=== PATIENT | female | born 1990 ===

== ENCOUNTER 2019-12-10 21:40 | Emergency (ER) | payer OTHER ==
--- NOTE | 2019-12-10 22:06 | EDM.PDOC ---
ED HPI GENERAL MEDICAL PROBLEM - General Chief Complaint: Abdominal Pain Stated Complaint: ABDOMINAL PAIN Time Seen by Provider: 12/10/19 22:05 Source of Information: Reports: Patient History Limitations: Reports: No Limitations - History of Present Illness INITIAL COMMENTS - FREE TEXT/NARRATIVE: Patient 29-year-old female presents today for vaginal bleeding. Patient states that while she is at work started having bleeding and passing what she thought was clots and tissue. Patient also planes of some lower abdominal cramps. Patient denies any nausea vomiting diarrhea fever chills. Patient is currently on control but does not use protection when having sex. abdomen Pain Score (Numeric/FACES): 9 - Related Data Allergies Allergy/AdvReac Type Severity Reaction Status Date / Time acetaminophen Allergy Rash Verified 12/10/19 22:00 [From Tylenol-Codeine #3] codeine Allergy Rash Verified 12/10/19 22:00 [From Tylenol-Codeine #3] oxycodone Allergy Rash Verified 12/10/19 22:00 Home Meds: Home Meds Antibiotic Uti 12/10/19 [History] Control 12/10/19 [History] Doxycycline [Vibra-Tabs] 100 mg PO Q12HR 14 Days #28 tab 12/10/19 [Rx] Saliva Substitute Combo No.9 [Biotene] 0 ml MM 12/10/19 [History] metroNIDAZOLE [Flagyl] 500 mg PO Q12H 14 Days #28 tab 12/10/19 [Rx] ED ROS GENERAL - Review of Systems Review Of Systems: Comprehensive ROS is negative, except as noted in HPI. Constitutional: Reports: No Symptoms HEENT: Reports: No Symptoms Respiratory: Reports: No Symptoms Cardiovascular: Reports: No Symptoms Endocrine: Reports: No Symptoms GI/Abdominal: Reports: No Symptoms : Reports: Irregular Menses Musculoskeletal: Reports: No Symptoms Skin: Reports: No Symptoms Neurological: Reports: No Symptoms Psychiatric: Reports: No Symptoms Hematologic/Lymphatic: Reports: No Symptoms Immunologic: Reports: No Symptoms ED EXAM, GENERAL - Physical Exam Exam: See Below Exam Limited By: No Limitations General Appearance: Alert, No Apparent Distress Respiratory/Chest: No Respiratory Distress Cardiovascular: Normal Peripheral Pulses GI/Abdominal: Normal Bowel Sounds (Female) Exam: Normal External Exam, Cervix Motion Tenderness Neurological: Alert, Oriented, CN II-XII Intact Course - Vital Signs Last Recorded V/S: Last Vital Signs Temp 98.1 F 12/10/19 22:01 Pulse 74 12/10/19 22:51 Resp 18 12/10/19 22:51 BP 95/59 L 12/10/19 22:51 Pulse Ox 99 12/10/19 22:51 - Orders/Labs/Meds Labs: Laboratory Tests 12/10/19 12/10/19 12/10/19 Range/Units 22:19 22:19 22:19 WBC 8.22 (4.0-11.0) K/uL RBC 5.34 (4.30-5.90) M/uL Hgb 12.1 (12.0-16.0) g/dL Hct 38.8 (36.0-46.0) % MCV 72.7 L (80.0-98.0) fL MCH 22.7 L (27.0-32.0) pg MCHC 31.2 (31.0-37.0) g/dL RDW Std Deviation 39.7 (28.0-62.0) fl RDW Coeff of Williams 15 (11.0-15.0) % Plt Count 348 (150-400) K/uL MPV 8.90 (7.40-12.00) fL Neut % (Auto) 57.0 (48.0-80.0) % Lymph % (Auto) 35.3 (16.0-40.0) % [place] % (Auto) 5.8 (0.0-15.0) % Eos % (Auto) 1.7 (0.0-7.0) % Baso % (Auto) 0.2 (0.0-1.5) % Neut # (Auto) 4.7 (1.4-5.7) K/uL Lymph # (Auto) 2.9 H (0.6-2.4) K/uL [place] # (Auto) 0.5 (0.0-0.8) K/uL Eos # (Auto) 0.1 (0.0-0.7) K/uL Baso # (Auto) 0.0 (0.0-0.1) K/uL Nucleated RBC % 0.0 /100WBC Nucleated RBCs # 0 K/uL Sodium 140 (136-145) mmol/L Potassium 3.8 (3.5-5.1) mmol/L Chloride 105 (98-107) mmol/L Carbon Dioxide 27.3 (21.0-32.0) mmol/L BUN 11 (7.0-18.0) mg/dL Creatinine 0.8 (0.6-1.0) mg/dL Est Cr Clr Drug Dosing TNP Estimated GFR (MDRD) > 60.0 ml/min Glucose 91 (74-106) mg/dL Calcium 8.5 (8.5-10.1) mg/dL HCG, Quant 2.0 mIU/mL Blood Type O POSITIVE Meds: Medications Discontinued Medications Generic Name Dose Route Start Last Admin Trade Name Freq PRN Reason Stop Dose Admin Doxycycline Hyclate 100 mg 12/10/19 23:29 12/10/19 23:46 Vibramycin PO 12/10/19 23:30 100 mg ONETIME ONE Administration Ceftriaxone Sodium 250 mg/ 1 mls @ 1 mls/sec 12/10/19 23:29 12/10/19 23:46 Lidocaine HCl IM 12/10/19 23:30 1 mls/sec ONETIME ONE Administration Ibuprofen 600 mg 12/10/19 23:32 12/10/19 23:46 Motrin PO 12/10/19 23:33 600 mg ONETIME ONE Administration Metronidazole 500 mg 12/10/19 23:29 12/10/19 23:46 Metronidazole PO 12/10/19 23:30 500 mg ONETIME ONE Administration Departure - Departure Time of Disposition: 23:48 Disposition: Home, Self-Care 01 Clinical Impression: PID (pelvic inflammatory disease) - Discharge Information *PRESCRIPTION DRUG MONITORING PROGRAM REVIEWED*: Not Applicable *COPY OF PRESCRIPTION DRUG MONITORING REPORT IN PATIENT GABRIELE: Not Applicable Instructions: Pelvic Pain, Female, [id number] Referrals: PCP,Not In Area [Primary Care Provider] - Forms: ED Department Discharge Additional Instructions: The following information is given to patients seen in the emergency department who are being discharged to home. This information is to outline your options for follow-up care. We provide all patients seen in our emergency department with a follow-up referral. The need for follow-up, as well as the timing and circumstances, are variable depending upon the specifics of your emergency department visit. If you don't have a primary care physician on staff, we will provide you with a referral. We always advise you to contact your personal physician following an emergency department visit to inform them of the circumstance of the visit and for follow-up with them and/or the need for any referrals to a consulting specialist. The emergency department will also refer you to a specialist when appropriate. This referral assures that you have the opportunity for follow-up care with a specialist. All of these measure are taken in an effort to provide you with optimal care, which includes your follow-up. Under all circumstances we always encourage you to contact your private physician who remains a resource for coordinating your care. When calling for follow-up care, please make the office aware that this follow-up is from your recent emergency room visit. If for any reason you are refused follow-up, please contact the [facility] Emergency Department at and asked to speak to the emergency department charge nurse. Please take antibiotics as prescribed. We will contact you in the next 2 to 3 days with your test results. Test results are negative you do not need eating antibiotics if they are positive please continue antibiotics and also have your partner be treated and tested as well. If you develop any fevers chills increased pain please return to the emergency department please. Sepsis Event Note (ED) - Evaluation Sepsis Screening Result: No Definite Risk - Focused Exam Vital Signs: Vital Signs Temp Pulse Resp BP Pulse Ox 12/10/19 22:51 74 18 95/59 L 99 12/10/19 22:01 98.1 F 70 20 118/83 98 - Assessment/Plan Plan: Patient is a 29-year-old female who presents today for vaginal bleeding and feels she is passing clots. Will obtain labs and test. Patient on exam has some CMT tenderness and associated with her protection. Will test patient for GC chlamydia and treat empirically.
[2019-12-10 22:54] LABS: BLOOD UREA NITROGEN,BUN 11 mg/dL (7.0-18.0); CARBON DIOXIDE,CO2 27.3 mmol/L (21.0-32.0); CHLORIDE,CL 105 mmol/L (98-107); GLUCOSE RANDOM 91 mg/dL (74-106); POTASSIUM,K 3.8 mmol/L (3.5-5.1); SODIUM,NA 140 mmol/L (136-145)
[2019-12-10] MEDS ORDERED: cefTRIAXone 250 MG in Lidocaine 1% 1 ML IM ONE (23:29)
[2019-12-10] MEDS ORDERED: Doxycycline 100 MG Cap PO ONE (23:29)
[2019-12-10] MEDS ORDERED: metroNIDAZOLE 250 MG Tab PO ONE (23:29)
[2019-12-10] MEDS ORDERED: Ibuprofen 600 MG Tab PO ONE (23:32)
[2019-12-14 15:02] LABS: C.TRACHOMATIS BY TMA Negative (Negative); N.GONORRHOEAE BY TMA Negative (Negative)
== END 2019-12-11 00:14 | disposition home or self-care (01) ==
LOC: MW.ED 21:40
DX: N73.9 Female pelvic inflammatory disease, unspecified (principal); Z88.6 Allergy status to analgesic agent; Z88.5 Allergy status to narcotic agent; Z79.899 Other long term (current) drug therapy
CPT/HCPCS: 36415; 80048; 84702; 85025; 86900; 86901; 87491; 87591; 96372; 99284; A9270; J0696; J2001; 99282

== ENCOUNTER 2019-12-15 18:19 | Emergency (ER) | payer OTHER ==
--- NOTE | 2019-12-15 19:01 | EDM.PDOC ---
ED HPI GENERAL MEDICAL PROBLEM - General Chief Complaint: General Stated Complaint: covid-19 Time Seen by Provider: 12/15/19 18:37 Source of Information: Reports: Patient History Limitations: Reports: No Limitations - History of Present Illness INITIAL COMMENTS - FREE TEXT/NARRATIVE: Presents reporting Covid symptoms. For the last 2 days she has had a cough, fever, body aches and congestion. No sore throat, diarrhea, breathing problems. Otherwise healthy without chronic medical problems. She states that she has a history of asthma but takes no medications and only rare flares. She does not smoke. 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, Polycystic Ovaries Musculoskeletal History: Reports: None Neurological History: Reports: None Psychiatric History: Reports: None Endocrine/Metabolic History: Reports: None Hematologic History: Reports: None Oncologic (Cancer) History: Reports: None Dermatologic History: Reports: None - Infectious Disease History Infectious Disease History: Reports: None Social & Family History - Family History Family Medical History: Noncontributory - Caffeine Use Caffeine Use: Reports: None - Recreational Drug Use Recreational Drug Use: No ED ROS GENERAL - Review of Systems Review Of Systems: Comprehensive ROS is negative, except as noted in HPI. ED EXAM, GENERAL - Physical Exam Exam: See Below Exam Limited By: No Limitations General Appearance: Alert, No Apparent Distress Ears: Normal External Exam, Normal TMs Nose: Normal Inspection Throat/Mouth: Normal Inspection, Normal Oropharynx Head: Atraumatic, Normocephalic Neck: Normal Inspection Respiratory/Chest: No Respiratory Distress Cardiovascular: Normal Peripheral Pulses, Regular Rate, Rhythm, No Murmur Back Exam: Normal Inspection Extremities: Normal Inspection Neurological: Alert, Oriented, Normal Cognition Psychiatric: Normal Affect, Normal Mood Skin Exam: Warm, Dry, Intact, Normal Color, No Rash Lymphatic: No Adenopathy Course - Vital Signs Last Recorded V/S: Last Vital Signs Temp 37.9 C 12/15/19 18:29 Pulse 96 12/15/19 18:29 Resp 18 12/15/19 18:29 BP 102/66 12/15/19 18:29 Pulse Ox 96 12/15/19 18:29 - Orders/Labs/Meds Orders: Active Orders 24 hr Category Date Time Status CORONAVIRUS COVID-19 PCR PH[facility] Stat Lab 12/15/19 18:52 Ordered Labs: Laboratory Tests 12/15/19 Range/Units 19:00 SARS CoV-2 RNA Rapid GARIMA POSITIVE H (NEGATIVE) Departure - Departure Time of Disposition: 19:21 Disposition: Home, Self-Care 01 Condition: Good Clinical Impression: COVID-19 - Discharge Information Referrals: PCP,Not In Area [Primary Care Provider] - [facility] [Outside] [facility] [Outside] Forms: ED Department Discharge Additional Instructions: The following information is given to patients seen in the emergency department who are being discharged to home. This information is to outline your options for follow-up care. We provide all patients seen in our emergency department with a follow-up referral. The need for follow-up, as well as the timing and circumstances, are variable depending upon the specifics of your emergency department visit. If you don't have a primary care physician on staff, we will provide you with a referral. We always advise you to contact your personal physician following an emergency department visit to inform them of the circumstance of the visit and for follow-up with them and/or the need for any referrals to a consulting specialist. The emergency department will also refer you to a specialist when appropriate. This referral assures that you have the opportunity for follow-up care with a specialist. All of these measure are taken in an effort to provide you with optimal care, which includes your follow-up. Under all circumstances we always encourage you to contact your private physician who remains a resource for coordinating your care. When calling for follow-up care, please make the office aware that this follow-up is from your recent emergency room visit. If for any reason you are refused follow-up, please contact the [facility] Emergency Department at and asked to speak to the emergency department charge nurse 1. Drink plenty of fluids and rest 2. Tylenol or ibuprofen as needed for body aches and fever 3. Quarantine at home per guidelines Sepsis Event Note (ED) - Evaluation Sepsis Screening Result: No Definite Risk - Focused Exam Vital Signs: Vital Signs Temp Pulse Resp BP Pulse Ox 12/15/19 18:29 37.9 C 96 18 102/66 96 - My Orders Last 24 Hours: My Active Orders 12/15/19 18:52 CORONAVIRUS COVID-19 PCR [facility] Stat - Assessment/Plan Last 24 Hours: My Active Orders 12/15/19 18:52 CORONAVIRUS COVID-19 PCR [facility] Stat
== END 2019-12-15 19:38 | disposition home or self-care (01) ==
LOC: MW.ED 18:19
DX: U07.1 COVID-19 (principal); J45.909 Unspecified asthma, uncomplicated; Z88.6 Allergy status to analgesic agent; Z88.5 Allergy status to narcotic agent
CPT/HCPCS: 99282; 99283; U0002

== ENCOUNTER 2020-02-12 04:08 | Emergency (ER) | payer MEDICAID, OTHER ==
[2020-02-12] MEDS ORDERED: Sodium Chloride 0.9% 2.5 ML Syringe FLUSH PRN (04:13)
[2020-02-12] MEDS ORDERED: Sodium Chloride 0.9% 1,000 ML IV ONE (04:13)
[2020-02-12] MEDS ORDERED: Sodium Chloride 0.9% 10 ML Syringe FLUSH PRN (04:13)
[2020-02-12] MEDS ORDERED: Ondansetron 4 MG/2 ML SDV IVPUSH ONE (04:26)
--- NOTE | 2020-02-12 04:38 | EDM.PDOC ---
ED HPI GENERAL MEDICAL PROBLEM - General Chief Complaint: Drug or Alcohol Abuse Stated Complaint: PT. UNRESPONSIVE Time Seen by Provider: 02/12/20 04:14 - History of Present Illness INITIAL COMMENTS - FREE TEXT/NARRATIVE: HISTORY AND PHYSICAL: History of present illness: This is a 29-year-old female who is brought in by her today secondary to being unresponsive after drinking a significant amount of alcohol this evening. Upon arrival to the ED the patient responded to sternal rub and was able to converse with us appropriately. Patient reports a history of hypertension, denies diabetes, liver, lung, kidney problems. Patient denies any abdominal or chest surgeries in the past. Patient reports alcohol tonight denies any drugs or tobacco. Patient denies any head trauma or injuries. Patient has any recent fevers, shakes, chills, nausea, vomiting, diarrhea, dysuria, frequency, urgency, chest pain, shortness of breath, bowel discomfort. Review of systems: As per history of present illness and below otherwise all systems reviewed and negative. Past medical history: As per history of present illness and as reviewed below otherwise noncontributory. Surgical history: As per history of present illness and as reviewed below otherwise noncontributory. Social history: No reported history of drug or alcohol abuse. Family history: As per history of present illness and as reviewed below otherwise non contributory. Physical exam: Constitutional: Patient is oriented to person, place, and time. Appears well- developed and well-nourished. No distress. HEENT: Moist mucous membranes Head: Normocephalic and atraumatic Eyes: Right eye exhibits no discharge. Left eye exhibits no discharge. No scleral icterus Neck: Normal range of motion. No tracheal deviation present. Cardiovascular: Normal rate and regular rhythm. Pulmonary: Effort normal, no respiratory distress. Abdominal: No distention Musculoskeletal: Normal range of motion Neurologic: Alert and oriented to person, place and time. Skin: [place], warm and dry. Psychiatric: Normal mood and affect. Behavior is normal. Judgment and thought content normal. Nursing note and vital signs have been reviewed Patient has no C-spine T-spine or L-spine tenderness to palpation. Patient has no left upper or right upper quadrant tenderness to palpation. Patient has no crepitus to palpation to the anterior chest wall. Patient is neurologically intact. Patient does not present with any signs or or symptoms that would be consistent with acute intracranial, intra-abdominal, intrathoracic, or long bone injury. All long bones have been palpated and range of motion been performed and there is no evidence of any acute pathology. Neck supple, no nuchal rigidity, no photophobia, no Kernig's sign or Brudzinski sign, patient does not present with signs or symptoms of be consistent with meningitis. Abd: Soft, nondistended, no rebound/guarding, no psoas or obturator signs, no tenderness at Mcberney's point, no Veras's sign. Pt does not present with an exam that would be consistent with an acute surgical abdomen at this time This patient was seen and evaluated during the 2019 SARS-CoV-2 novel coronavirus pandemic period. Community viral transmission is ongoing at time of this encounter and the emergency department is operating under pandemic response procedures. Assessment and plan: This is a 29-year-old female who presents ER today secondary to being unresponsive this evening after drinking significant alcohol. Patient denies any drug use. Patient be monitored in the ER. Patient will have labs checked including a CBC, CMP and a alcohol level. Patient be given IV fluids and Zofran to assist her with her symptoms and hydration while she is here. Patient does not present with any signs or symptoms of be concerning for acute head trauma, stroke, bleed. Definitive disposition and diagnosis as appropriate pending reevaluation and review of above. - Related Data Allergies Allergy/AdvReac Type Severity Reaction Status Date / Time acetaminophen Allergy Rash Verified 02/12/20 04:36 [From Tylenol-Codeine #3] codeine Allergy Rash Verified 02/12/20 04:36 [From Tylenol-Codeine #3] oxycodone Allergy Rash Verified 02/12/20 04:36 Home Meds: Home Meds Control 12/10/19 [History] Saliva Substitute Combo No.9 [Biotene] 0 ml MM 12/10/19 [History] Ondansetron [Zofran ODT] 4 mg PO Q6H PRN #12 tab.dis 02/12/20 [Rx] Past Medical History HEENT History: Reports: None Cardiovascular History: Reports: None Respiratory History: Reports: Asthma Gastrointestinal History: Reports: None 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: Endometriosis, Polycystic Ovaries Musculoskeletal History: Reports: None Neurological History: Reports: None Psychiatric History: Reports: None Endocrine/Metabolic History: Reports: None Hematologic History: Reports: None Oncologic (Cancer) History: Reports: None Dermatologic History: Reports: None - Infectious Disease History Infectious Disease History: Reports: None Social & Family History - Family History Family Medical History: No Pertinent Family History - Caffeine Use Caffeine Use: Reports: None ED ROS GENERAL - Review of Systems Review Of Systems: See Below ED EXAM, GENERAL - Physical Exam Exam: See Below Course - Vital Signs Last Recorded V/S: Last Vital Signs Temp 96.8 F L 02/12/20 04:08 Pulse 81 02/12/20 05:47 Resp 14 02/12/20 05:47 BP 107/68 02/12/20 05:47 Pulse Ox 96 02/12/20 05:47 - Orders/Labs/Meds Orders: Active Orders 24 hr Category Date Time Status Sodium Chloride 0.9% [Saline Flush] Med 02/12/20 04:13 Active 10 ml FLUSH ASDIRECTED PRN Sodium Chloride 0.9% [Saline Flush] Med 02/12/20 04:13 Active 2.5 ml FLUSH ASDIRECTED PRN Saline Lock Insert [OM.PC] Stat Oth 02/12/20 04:13 Ordered Medication Orders Sodium Chloride (Saline Flush) 10 ml FLUSH ASDIRECTED PRN PRN Reason: Keep Vein Open Last Admin: 02/12/20 04:19 Dose: 10 ml Documented by: TANO Sodium Chloride (Saline Flush) 2.5 ml FLUSH ASDIRECTED PRN PRN Reason: Keep Vein Open Last Admin: 02/12/20 04:18 Dose: 2.5 ml Documented by: TANO Labs: Laboratory Tests 02/12/20 02/12/20 Range/Units 04:15 04:15 WBC 11.15 H (4.0-11.0) K/uL RBC 5.50 (4.30-5.90) M/uL Hgb 12.4 (12.0-16.0) g/dL Hct 39.7 (36.0-46.0) % MCV 72.2 L (80.0-98.0) fL MCH 22.5 L (27.0-32.0) pg MCHC 31.2 (31.0-37.0) g/dL RDW Std Deviation 38.9 (28.0-62.0) fl RDW Coeff of Williams 15 (11.0-15.0) % Plt Count 311 (150-400) K/uL MPV 8.90 (7.40-12.00) fL Neut % (Auto) 39.2 L (48.0-80.0) % Lymph % (Auto) 52.6 H (16.0-40.0) % [place] % (Auto) 5.6 (0.0-15.0) % Eos % (Auto) 2.2 (0.0-7.0) % Baso % (Auto) 0.4 (0.0-1.5) % Neut # (Auto) 4.4 (1.4-5.7) K/uL Lymph # (Auto) 5.9 H (0.6-2.4) K/uL [place] # (Auto) 0.6 (0.0-0.8) K/uL Eos # (Auto) 0.3 (0.0-0.7) K/uL Baso # (Auto) 0.1 (0.0-0.1) K/uL Nucleated RBC % 0.0 /100WBC Nucleated RBCs # 0 K/uL Sodium 142 (136-145) mmol/L Potassium 3.7 (3.5-5.1) mmol/L Chloride 105 (98-107) mmol/L Carbon Dioxide 23.1 (21.0-32.0) mmol/L BUN 9 (7.0-18.0) mg/dL Creatinine 0.9 (0.6-1.0) mg/dL Est Cr Clr Drug Dosing TNP Estimated GFR (MDRD) > 60.0 ml/min Glucose 106 (74-106) mg/dL Calcium 9.3 (8.5-10.1) mg/dL Total Bilirubin 0.5 (0.2-1.0) mg/dL AST 30 (15-37) IU/L ALT 50 (14-63) IU/L Alkaline Phosphatase 62 (46-116) U/L Total Protein 7.8 (6.4-8.2) g/dL Albumin 3.9 (3.4-5.0) g/dL Globulin 3.9 (2.6-4.0) g/dL Albumin/Globulin Ratio 1.0 (0.9-1.6) Ethyl Alcohol 167 mg/dL Meds: Medications Generic Name Dose Route Start Last Admin Trade Name Freq PRN Reason Stop Dose Admin Sodium Chloride 10 ml 02/12/20 04:13 02/12/20 04:19 Saline Flush FLUSH 10 ml ASDIRECTED PRN Administration Keep Vein Open Sodium Chloride 2.5 ml 02/12/20 04:13 02/12/20 04:18 Saline Flush FLUSH 2.5 ml ASDIRECTED PRN Administration Keep Vein Open Discontinued Medications Generic Name Dose Route Start Last Admin Trade Name Freq PRN Reason Stop Dose Admin Sodium Chloride 1,000 mls @ 999 mls/hr 02/12/20 04:13 02/12/20 04:19 Normal Saline IV 02/12/20 05:13 999 mls/hr .Bolus ONE Administration Ondansetron HCl 4 mg 02/12/20 04:26 02/12/20 04:40 Zofran IVPUSH 02/12/20 04:27 4 mg ONETIME ONE Administration Departure - Departure Time of Disposition: 06:08 Disposition: Home, Self-Care 01 Condition: Good Clinical Impression: Unresponsive episode Alcohol intoxication Qualifiers: Complication of substance-induced condition: uncomplicated Qualified Code(s): F10.920 - Alcohol use, unspecified with intoxication, uncomplicated - Discharge Information Instructions: Binge-Drinking Information, Adult, Alcohol Intoxication, Easy-to- Read Referrals: PCP,None [Primary Care Provider] - Forms: ED Department Discharge Additional Instructions: You were seen and evaluated in the ER today secondary to an episode of unresponsiveness. Your alcohol level here in the ER today is 0.167. For reference, the legal limit for driving is under 0.08. This means you are a little over twice the legal limit for driving. In the ED you have been given medicine to help you with nausea as well as IV fluids. Please avoid excessive alcohol use in the future. The following information is given to patients seen in the emergency department who are being discharged to home. This information is to outline your options for follow-up care. We provide all patients seen in our emergency department with a follow-up referral. The need for follow-up, as well as the timing and circumstances, are variable depending upon the specifics of your emergency department visit. If you don't have a primary care physician on staff, we will provide you with a referral. We always advise you to contact your personal physician following an emergency department visit to inform them of the circumstance of the visit and for follow-up with them and/or the need for any referrals to a consulting specialist. The emergency department will also refer you to a specialist when appropriate. This referral assures that you have the opportunity for follow-up care with a specialist. All of these measure are taken in an effort to provide you with optimal care, which includes your follow-up. Under all circumstances we always encourage you to contact your private physician who remains a resource for coordinating your care. When calling for follow-up care, please make the office aware that this follow-up is from your recent emergency room visit. If for any reason you are refused follow-up, please contact the [facility] Emergency Department at and asked to speak to the emergency department charge nurse. [facility] [address] [place] [id number] [address] Sepsis Event Note (ED) - Focused Exam Vital Signs: Vital Signs Temp Pulse Resp BP Pulse Ox 02/12/20 05:47 81 14 107/68 96 02/12/20 04:08 96.8 F L 114 H 6 L 119/66 97 - My Orders Last 24 Hours: My Active Orders 02/12/20 04:13 Sodium Chloride 0.9% [Saline Flush] 10 ml FLUSH ASDIRECTED PRN Sodium Chloride 0.9% [Saline Flush] 2.5 ml FLUSH ASDIRECTED PRN Saline Lock Insert [OM.PC] Stat - Assessment/Plan Last 24 Hours: My Active Orders 02/12/20 04:13 Sodium Chloride 0.9% [Saline Flush] 10 ml FLUSH ASDIRECTED PRN Sodium Chloride 0.9% [Saline Flush] 2.5 ml FLUSH ASDIRECTED PRN Saline Lock Insert [OM.PC] Stat
[2020-02-12 04:42] LABS: BLOOD UREA NITROGEN,BUN 9 mg/dL (7.0-18.0); CARBON DIOXIDE,CO2 23.1 mmol/L (21.0-32.0); CHLORIDE,CL 105 mmol/L (98-107); GLUCOSE RANDOM 106 mg/dL (74-106); POTASSIUM,K 3.7 mmol/L (3.5-5.1); SODIUM,NA 142 mmol/L (136-145)
== END 2020-02-12 06:29 | disposition home or self-care (01) ==
LOC: MW.ED 04:08
DX: F10.120 Alcohol abuse with intoxication, uncomplicated (principal); R40.1 Stupor; J45.909 Unspecified asthma, uncomplicated; I10 Essential (primary) hypertension; Z88.6 Allergy status to analgesic agent; Z88.5 Allergy status to narcotic agent; Y90.6 Blood alcohol level of 120-199 mg/100 ml
CPT/HCPCS: 36415; 80053; 80179; 85025; 96374; 99284; J2405; J7030; 99283